=== PATIENT | female | born 1955 | race Caucasian/White ===

== ENCOUNTER 2020-04-30 11:51 | Outpatient (CLI) | payer MEDICAID, SELFPAY ==
--- NOTE | 2020-04-30 12:08 | MM_ITS ---
WS: [id number] DIAGNOSTIC BILATERAL DIGITAL MAMMOGRAM WITH CAD HISTORY: RIGHT breast paresthesias COMPARISON: 09/05/2018 TECHNIQUE: Bilateral craniocaudad, mediolateral oblique, and mediolateral views are submitted. Spot c ompression RIGHT CC. Computer aided detection utilized. Breast composition: There are scattered areas of fibroglandular density. Stable parenchymal pattern. Stable calcifications. No mass or distortion. MM/[place] [id number] IMPRESSION: BI-RADS: 2-Benign FOLLOW UP: 1 Year Follow-up
== END 2020-04-30 11:52 | disposition home or self-care (01) ==
LOC: RADSHAW 11:54
PROVIDERS: PCP Physician Assistant Medical; Visit Provider Physician Assistant Medical
DX: R20.2 Paresthesia of skin (principal)
CPT/HCPCS: 77066

== ENCOUNTER 2022-08-14 18:08 | Emergency (ER) | payer MEDICAID, SELFPAY ==
[2022-08-14] VITALS (8 sets, daily range): BP systolic 142–168; BP diastolic 60–84; PULSE 82–89; RESP 16–18; TEMP 36.8; O2SAT 91–98
--- NOTE | 2022-08-14 18:46 | CTR_ITS ---
PROCEDURE INFORMATION: Exam: CT Cervical Spine Without Contrast Exam date and time: 08/14/2022 8:08 PM Age: 67 years old Clinical indication: Other: AMS; Additional info: Trauma TECHNIQUE: Imaging protocol: Computed tomography of the cervical spine without contrast. Radiation optimization: All CT scans at this facility use at least one of these dose optimization techniques: automated exposure control; mA and/or kV adjustment per patient size (includes targeted exams where dose is matched to clinical indication); or iterative reconstruction. COMPARISON: CT head wo con* [id number] 08/14/2022 8:05 PM RADIATION DOSE METRICS: Total DLP (mGy-cm): 489.63 FINDINGS: Bones/joints: No acute fracture. Normal alignment. No significant disc protrusion. Apse-wr-qwpxxmds C5-7 degenerative change with loss of disc space and osteophyte formation. Lungs: Lung apices are normal. Vasculature: Advanced diffuse vascular calcification noted. Soft tissues: Unremarkable. CT/CT cervical spin wo con* [id number] IMPRESSION: 1. No acute findings. 2. Chronic findings above. Lower cervical DJD.
--- NOTE | 2022-08-14 18:46 | XRR_ITS ---
PROCEDURE INFORMATION: Exam: XR Chest Exam date and time: 08/14/2022 6:51 PM Age: 67 years old Clinical indication: Shortness of breath and other: Confusion; Additional info: SOB TECHNIQUE: Imaging protocol: Radiologic exam of the chest. Views: 1 view. COMPARISON: CT chest con [id number] 09/10/2016 8:36 AM FINDINGS: Tubes, catheters and devices: Multiple surgical clips project over the right and left chest. Lungs: Unremarkable. No consolidation. Pleural spaces: Unremarkable. No pleural effusion. No pneumothorax. Heart/Mediastinum: Unremarkable. No cardiomegaly. Bones/joints: Unremarkable. XR/XR chest 1V portable [id number] IMPRESSION: No acute findings.
--- NOTE | 2022-08-14 18:46 | CTR_ITS ---
PROCEDURE INFORMATION: Exam: CT Abdomen And Pelvis With Contrast Exam date and time: 08/14/2022 8:13 PM Age: 67 years old Clinical indication: Abdominal pain; Localized; Left lower quadrant (llq); Additional info: Llq abd pain TECHNIQUE: Imaging protocol: Computed tomography of the abdomen and pelvis with contrast. Radiation optimization: All CT scans at this facility use at least one of these dose optimization techniques: automated exposure control; mA and/or kV adjustment per patient size (includes targeted exams where dose is matched to clinical indication); or iterative reconstruction. Contrast material: OMNI 350; Contrast volume: 100 ml; Contrast route: INTRAVENOUS (IV); COMPARISON: [place] [id number] 05/23/2016 2:36 AM RADIATION DOSE METRICS: Total DLP (mGy-cm): 1752.98 FINDINGS: Liver: Normal. No mass. Gallbladder and bile ducts: Cholecystectomy. No ductal dilation. Pancreas: Normal. No ductal dilation. Spleen: Normal. No splenomegaly. Adrenal glands: Normal. No mass. Kidneys and ureters: Normal. No hydronephrosis. Stomach and bowel: Sigmoid diverticulosis without findings of acute diverticulitis. No obstruction. No mucosal thickening. Appendix: No evidence of appendicitis. Intraperitoneal space: No free air. No significant fluid collection. Vasculature: No abdominal aortic aneurysm. Lymph nodes: No enlarged lymph nodes. Urinary bladder: Unremarkable as visualized. Reproductive: Hysterectomy. Bones/joints: No acute fracture. Soft tissues: Unremarkable. CT/CT abdomen pelvis w con* [id number] IMPRESSION: No acute findings.
--- NOTE | 2022-08-14 18:46 | CTR_ITS ---
PROCEDURE INFORMATION: Exam: CT Head Without Contrast Exam date and time: 08/14/2022 8:05 PM Age: 67 years old Clinical indication: Altered mental status/memory loss; Additional info: AMS TECHNIQUE: Imaging protocol: Computed tomography of the head without contrast. Radiation optimization: All CT scans at this facility use at least one of these dose optimization techniques: automated exposure control; mA and/or kV adjustment per patient size (includes targeted exams where dose is matched to clinical indication); or iterative reconstruction. COMPARISON: No relevant prior studies available. RADIATION DOSE METRICS: Total DLP (mGy-cm): 1217.18 FINDINGS: Brain: No focal hemorrhage or midline shift is identified. The ventricles and parenchyma show vnvb-ek-tjkfypii atrophy and chronic bicerebral white matter ischemic change. A few scattered old lacunes are likely. Cerebral ventricles: No ventriculomegaly or evidence of hydrocephalus. Paranasal sinuses: No evidence of acute sinusitis. Mastoid air cells: Visualized mastoid air cells are well aerated. Bones/joints: No displaced skull fracture is noted. Soft tissues: Unremarkable. Vasculature: Advanced diffuse vascular calcification noted. CT/CT head wo con* [id number] IMPRESSION: 1. No acute intracranial abnormality. 2. Jqlt-fw-fvlhkpjh age-related changes. Other chronic findings above.
--- NOTE | 2022-08-14 18:56 | W.ED.AMS ---
HPI - Altered Mental Status General: Chief Complaint: Altered Mental Status Stated Complaint: CONFUSION Time Seen by Provider: 08/14/22 18:34 History of Present Illness: Patient is brought in by EMS after family requested she be sent here due to hallucinations and mental status change. Per the patient's ycqdbw-bi-fho the patient has been slowly declining for the past 6 months but she has seen a significant decline in the last week to week and a half. The patient states that there are people that enter her house and one of them has a big knife that he she was afraid he was going to kill her with. The police were at the patient's house the other day when this person person was in her home and they did not see anybody. Per the gshfyb-zf-qkc these hallucinations have been getting worse. Patient states that she has been falling frequently recently. Associated symptoms: Reports visual hallucinations Review of Systems Const: Denies: fever(s) or body aches Eyes: Denies: change in vision or blurry vision ENMT: Denies: throat pain or odynophagia Card: Denies: chest pain or palpitations Resp: Denies: dyspnea or productive cough GI: Denies: abdominal pain, nausea or vomiting : Denies: flank pain or dysuria Musc: Denies: neck pain or back pain Skin/Breast: Denies: rash or pruritus Neuro: Denies: headache(s) or numbness in extremities Psych: Reports: visual hallucinations; Denies: anxiety or change in appetite Endo: Denies: polyuria or excessive sweating PFSH ED PFSH: Medical History (Updated 08/14/22 @ 22:53 by Kyle Reyes MD) Dysphagia Family History Denies family history of Anesthesia complication Bleeding disorder Social History Smoking and tobacco status: current every day smoker cigarettes Alcohol intake: never Physical Exam Const: COMMON NORMALS: no acute distress, patient oriented x3, healthy appearing and alert HENMT: COMMON NORMALS: normocephalic and atraumatic HEAD & SCALP: normocephalic and atraumatic Eye: OTHER: Pupils are 8 mm bilaterally and minimally reactive Neck/C-Spine: COMMON NORMALS: full ROM and supple Resp: COMMON NORMALS: normal respiratory effort, No retractions and No use of accessory muscles Cardio: COMMON NORMALS: regular rate and regular rhythm RATE: regular rate RHYTHM: regular rhythm GI: COMMON NORMALS: Soft to palpation PALPATION: Yes Soft to palpation OTHER: Generalized tenderness to palpation worse in the left lower quadrant Back/Pelvis: COMMON NORMALS: thoracic and lumbar spine normal to inspection and no thoracic nor lumbar tenderness Extremity: COMMON NORMALS: normal to inspection and full ROM Neuro: COMMON NORMALS: patient oriented x3 SENSORIUM/ORIENTATION: Yes alert Psych: COMMON NORMALS: cooperative; negative for denies hallucinations Skin: COMMON NORMALS: no rashes or lesions noted and no wounds GENERAL SKIN EXAM: no rashes or lesions noted Course Vital Signs: Vital signs: Vital Signs Temperature 98.2 F 08/14/22 18:09 Pulse Rate 83 08/14/22 22:40 Respiratory Rate 16 08/14/22 22:30 Blood Pressure 148/63 08/14/22 22:30 Pulse Oximetry 93 08/14/22 22:40 Oxygen Delivery Me thod 08/14/22 22:40 MDM - Altered Mental Status Medical Decision Making Patient is brought in by EMS after family requested she be sent here due to hallucinations and mental status change. Per the patient's zjfiwt-le-vew the patient has been slowly declining for the past 6 months but she has seen a significant decline in the last week to week and a half. The patient states that there are people that enter her house and one of them has a big knife that he she was afraid he was going to kill her with. The police were at the patient's house the other day when this person person was in her home and they did not see anybody. Per the dtkvgm-fo-jpz these hallucinations have been getting worse. Patient states that she has been falling frequently recently. We will check labs, x-ray, CT, and reassess. On reassessment I talked to the patient's onwnyj-md-eif about the test results. I discussed the case with the hospitalist and with psychiatry. We will check CTA chest and if that is negative likely transfer to geriatric psychiatry. Will sign out to the oncoming physician awaiting test results. Lab Data 08/14/22 18:30 08/14/22 18:30 Radiology Impressions Abdomen/Pelvis CT 08/14/22 18:46 IMPRESSION: No acute findings. Cervical Spine CT 08/14/22 18:46 IMPRESSION: 1. No acute findings. 2. Chronic findings above. Lower cervical DJD. Chest X-Ray 08/14/22 18:46 IMPRESSION: No acute findings. Head CT 08/14/22 18:46 IMPRESSION: 1. No acute intracranial abnormality. 2. Daiq-xz-qucqdvmj age-related changes. Other chronic findings above. Laboratory Results WBC 15.1 10^3/uL (4.0-10.0) H 08/14/22 18:30 RBC 4.90 10^6/uL (4.1-5.3) 08/14/22 18:30 Hgb 12.8 g/dL (11.5-15.3) 08/14/22 18:30 Hct 40.5 % (37.0-47.0) 08/14/22 18:30 MCV 82.7 fl (81-99) 08/14/22 18:30 MCH 26.1 pg (28.0-34.0) L 08/14/22 18: MCHC 31.6 g/dL (30.0-36.0) 08/14/22 18:30 RDW 16.4 % (12.1-15.1) H 08/14/22 18:30 Plt Count 411 10^3/cmm (130-400) H 08/14/22 18:30 MPV 11.4 fL (7.4-10.4) H 08/14/22 18:30 Neut % (Auto) 75.4 % 08/14/22 18:30 Lymph % (Auto) 18.3 % 08/14/22 18:30 [place] % (Auto) 4.5 % 08/14/22 18:30 Eos % (Auto) 0.7 % 08/14/22 18:30 Baso % (Auto) 0.5 % 08/14/22 18:30 Neut # (Auto) 11.34 10^3/uL (1.8-7.7) H 08/14/22 18:30 Lymph # (Auto) 2.8 10^3/uL (0.8-4.8) 08/14/22 18:30 [place] # (Auto) 0.7 10^3/uL (0.2-0.9) 08/14/22 18:30 Eos # (Auto) 0.1 10^3/uL (0.0-0.8) 08/14/22 18:30 Baso # (Auto) 0.1 10^3/uL (0.0-0.1) 08/14/22 18:30 Nucleated RBC % (auto) 0 % 08/14/22 18:30 Nucleated RBCs # 0.0 /100WBC 08/14/22 18: ESR 26 mm/hr (0-15) H 08/14/22 21:46 Sodium 135 mmol/L (136-145) L 08/14/22 18:30 Potassium 4.1 mmol/L (3.5-5.1) 08/14/22 18:30 Chloride 97 mmol/L (98-107) L 08/14/22 18:30 Carbon Dioxide 28 mmol/L (22-29) 08/14/22 18:30 Anion Gap 14.1 (5-19) 08/14/22 18:30 BUN 13 mg/dL (8-23) 08/14/22 18:30 Creatinine 0.7 mg/dL (0.5-0.9) 08/14/22 18:30 GFR Calculation 83.2 mL/min (90-130) L 08/14/22 18:30 Glucose 92 mg/dL (65-115) 08/14/22 18:30 Calculated Osmolality 280 mOsm/kg (285-295) L 08/14/22 18:30 Calcium 9.0 mg/dL (8.5-10.5) 08/14/22 18:30 Magnesium 1.9 mg/dL (1.7-2.3) 08/14/22 18:30 Total Bilirubin 0.4 mg/dL (0.15-1.2) 08/14/22 18:30 AST 37 U/L (0-32) H 08/14/22 18:30 ALT 14 U/L (0-33) 08/14/22 18:30 Alkaline Phosphatase 143 U/L (35-105) H 08/14/22 18:30 Ammonia 14 umol/L (11-51) 08/14/22 19:10 Total Protein 7.0 g/dL (6.6-8.7) 08/14/22 18:30 Albumin 3.4 g/dL (3.5-5.2) L 08/14/22 18:30 Globulin 3.6 g/dL (1.3-4.6) 08/14/22 18:30 Procalcitonin 0.06 ng/mL (0-0.5) 08/14/22 21:46 TSH 1.19 uIU/mL (0.27-4.20) 08/14/22 21:46 Urine Color Yellow (Yellow) 08/14/22 20:43 Urine Appearance Clear (CLEAR) 08/14/22 20:43 Urine pH 7 (5-7) 08/14/22 20:43 Ur Specific [place] 1.005 (1.005-1.030) 08/14/22 20:43 Urine Protein Neg (Negative) 08/14/22 20:43 Urine Glucose (UA) Norm (Normal) 08/14/22 20:43 Urine Ketones 1+ (Negative) H 08/14/22 20:43 Urine Blood Neg (Negative) 08/14/22 20:43 Urine Nitrate Negative (Negative) 08/14/22 20:43 Urine Bilirubin Neg (Negative) 08/14/22 20:43 Urine Urobilinogen Norm mg/dL (Negative) 08/14/22 20:43 Ur Leukocyte Esterase Negative (Negative) 08/14/22 20:43 Salicylates 0.6 mg/dL (3-10) L 08/14/22 18:30 Urine Opiates Screen Negative ng/mL (Negative) 08/14/22 20:43 Acetaminophen < 5.0 ug/mL (10-30) L 08/14/22 18:30 Ur Barbiturates Screen Negative ng/mL (Negative) 08/14/22 20:43 Ur Phencyclidine Scrn Negative ng/mL (Negative) 08/14/22 20:43 Ur Amphetamines Screen Negative ng/mL (Negative) 08/14/22 20:43 U Benzodiazepines Scrn Positive ng/mL (Negative) H 08/14/22 20:43 Urine Cocaine Screen Negative ng/mL (Negative) 08/14/22 20:43 U Marijuana (THC) Screen Negative ng/mL (Negative) 08/14/22 20:43 Ethyl Alcohol < 10 mg/dL (0-10) 08/14/22 18:30 Discharge Plan Discharge Clinical Impression: Hallucinations Condition: Stable Prescriptions: No Action venlafaxine 37.5 mg tablet 37.5 mg PO DAILY butenafine [Lotrimin Ultra] 1 % cream 1 applic TOPICAL DAILY Rx Instructions: apply to cleansed affected area and immediate surrounding areas Combivent Respimat 20-100 mcg/actuation mist 1 puff INHALATION Q6H alprazolam 1 mg tablet 1 mg PO DAILY amlodipine 10 mg tablet 10 mg PO DAILY levothyroxine 137 mcg capsule 137 mcg PO DAILY fluticasone propion-salmeterol [Advair Diskus] 500-50 mcg/dose blister with device 1 inh INHALATION BID omeprazole 20 mg capsule,delayed release(DR/EC) 20 mg PO DAILY mupirocin calcium 2 % cream 1 applic TOPICAL BID quetiapine [Seroquel] 100 mg tablet 100 mg PO DAILY sulfacetamide sodium 10 % ointment 1 applic ophthalmic (eye) Q4H lisinopril 20 mg tablet 20 mg PO DAILY sucralfate 1 gram tablet 1 gm PO BID albuterol sulfate 2.5 mg /3 mL (0.083 %) solution for nebulization 2.5 mg INHALATION QID Referrals: Steven Castrejon [Primary Care Provider] - Coding Level of Care Code ED Vamp Cut Out Worker for Chg Fwd Exam Comprehensive
[2022-08-14] MEDS: sodium chloride 0.9% 500 ML IV (19:08)
[2022-08-14 19:12] LABS: Basophils # 0.1 10^3/uL (0.0-0.1); Basophils % 0.5 %; Eosinophils # 0.1 10^3/uL (0.0-0.8); Eosinophils % 0.7 %; Hematocrit 40.5 % (37.0-47.0); Hemoglobin 12.8 g/dL (11.5-15.3); Lymphocytes # 2.8 10^3/uL (0.8-4.8); Lymphocytes % 18.3 %; Mean Corpuscular HGB Conc 31.6 g/dL (30.0-36.0); Mean Corpuscular Hemoglobin 26.1 pg (28.0-34.0); Mean Corpuscular Volume 82.7 fl (81-99); Mean Platelet Volume 11.4 fL (7.4-10.4); Monocytes # 0.7 10^3/uL (0.2-0.9); Monocytes % 4.5 %; Neutrophils # 11.34 10^3/uL (1.8-7.7); Neutrophils % 75.4 %; Nucleated Red Blood Cells % 0 %; Platelet Count 411 10^3/cmm (130-400); Red Cell Distribution Width 16.4 % (12.1-15.1); White Blood Count 15.1 10^3/uL (4.0-10.0)
[2022-08-14 19:49] LABS: Alanine Aminotransferase 14 U/L (0-33); Albumin Level 3.4 g/dL (3.5-5.2); Alkaline Phosphatase 143 U/L (35-105); Anion Gap 14.1 (5-19); Aspartate Amino Transferase 37 U/L (0-32); Blood Urea Nitrogen 13 mg/dL (8-23); Carbon Dioxide 28 mmol/L (22-29); Chloride 97 mmol/L (98-107); Globulin 3.6 g/dL (1.3-4.6); Glomerular Filtration Rate 83.2 mL/min (90-130); Glucose 92 mg/dL (65-115); Magnesium 1.9 mg/dL (1.7-2.3); Osmolality Calculated 280 mOsm/kg (285-295); Potassium 4.1 mmol/L (3.5-5.1); Salicylate 0.6 mg/dL (3-10); Sodium 135 mmol/L (136-145); Total Bilirubin 0.4 mg/dL (0.15-1.2)
[2022-08-14 19:51] LABS: Ammonia 14 umol/L (11-51)
[2022-08-14 19:53] LABS: Acetaminophen < 5.0 ug/mL (10-30); Alcohol Level < 10 mg/dL (0-10)
[2022-08-14] MEDS: iohexol 350 mg/mL 500 mL Btl (per mL) IV (20:42)
[2022-08-14 20:53] LABS: Add Urine Microscopic? NO; Charge for UA Resulting for Rev
[2022-08-14 20:56] LABS: Bilirubin Urine Neg (Negative); Blood Urine Neg (Negative); Glucose Urine UA Norm (Normal); Ketones Urine 1+ (Negative); Leukocyte Esterase Urine Negative (Negative); Nitrate Urine Negative (Negative); Protein Urine Neg (Negative); Specific Gravity, Urine 1.005 (1.005-1.030); Urine Appearance Clear (CLEAR); Urine Color Yellow (Yellow); Urobilinogen Urine Norm (Negative); pH Urine 7 (5-7)
[2022-08-14 21:04] LABS: Amphetamines Screen Urine Negative (Negative); Barbiturates Screen Urine Negative (Negative); Benzodiazepines Screen Urine Positive (Negative); Cocaine Screen Urine Negative (Negative); Opiate Screen Urine Negative (Negative); PCP Screen Urine Negative (Negative); THC Screen Urine Negative (Negative)
--- NOTE | 2022-08-14 22:07 | ECG_ITS ---
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 [id number]
--- NOTE | 2022-08-14 22:07 | CTR_ITS ---
PROCEDURE INFORMATION: Exam: CTA Chest With Contrast Exam date and time: 08/14/2022 11:20 PM Age: 67 years old Clinical indication: Shortness of breath; Patient HX: Cough, shob; Additional info: Concern for pe TECHNIQUE: Imaging protocol: Computed tomographic angiography of the chest with contrast. 3D rendering (Not supervised by radiologist): MIP and/or 3D reconstructed images were created by the technologist. Radiation optimization: All CT scans at this facility use at least one of these dose optimization techniques: automated exposure control; mA and/or kV adjustment per patient size (includes targeted exams where dose is matched to clinical indication); or iterative reconstruction. Contrast material: OMNI 350; Contrast volume: 80 ml; Contrast route: INTRAVENOUS (IV); COMPARISON: CT chest wo con [id number] 09/10/2016 8:36 AM RADIATION DOSE METRICS: Total DLP (mGy-cm): 428.46 FINDINGS: Pulmonary arteries: No main, lobar, or segmental PE identified. Aorta: Unremarkable. No aortic aneurysm. No aortic dissection. Other arteries: Severe atherosclerosis. Lungs: Minor areas of lung base atelectasis or scarring. Bilateral upper lobe clips are seen on series 4, image 17. Small area of RUL chronic appearing consolidation or mass measuring 2.9 cm. A similar left-sided 1 is also present measuring up to 3.0 cm. See series 4, image 17. Pleural spaces: No pneumothorax. No pleural effusion noted. Heart: The heart is not enlarged. No pericardial effusion is noted. Lymph nodes: Mild mediastinal and bilateral hilar lymphadenopathy. Nodes measure up to 1.8 cm. Diaphragm: Small hiatal hernia. Bones/joints: Few old right upper rib deformities. Soft tissues: Unremarkable. CT/CT angio chest [id number] IMPRESSION: 1. No PE identified. 2. COPD with bilateral upper lung clips and nodular consolidations as described. These may be due to scar, neoplasm, etc. Mild mediastinal and bilateral hilar lymphadenopathy. Recommend three-month follow-up. 3. Other findings above. 4. See the same-day abdomen/pelvis CT report for upper abdominal findings.
[2022-08-14 22:13] LABS: Erythrocyte Sedimentation Rate 26 mm/hr (0-15)
[2022-08-14] MEDS: albuterol 2.5 mg/3 mL Neb INHALATION (22:39)
[2022-08-14 22:41] LABS: Procalcitonin 0.06 ng/mL (0-0.5); Thyroid Stimulating Hormone 1.19 uIU/mL (0.27-4.20)
--- NOTE | 2022-08-14 22:50 | P.HP_ITS ---
Providers/Chief Complaint Primary Care Provider: Steven Castrejon Chief Complaint: CONFUSION History of Present Illness Deena Rivero is a 67 year old female with a strong family history of Alzheimer's dementia, both mother and father had it, she has had some undiagnosed dementia for the last few years, history of depression, history of a nxiety, history of lung cancer, status post radiation therapy, smoker, COPD, hypothyroidism, hypertension who presents to [facility] due to seeing things are not there. Patient's [id number]-tn-prl is at bedside, she tells me that patient lives at home by herself, she can ambulate on her own with a walker, she needs assisted in cooking cleaning and paying the bills. At baseline she has not alert place or time she does not know the president. She has been like this for a few years, the family thinks it potentially dementia, as both her mom and father had severe Alzheimer's dementia, quite young and from dementia. She in February had a significant life altering event her mom who was her best friend, and since then she has been quite down and depressed. She has voiced suicidal ideation to family members in the past. Family says that she has gone through a downward spiral since her mom , but recently in the last few weeks, she has been voicing that she sees things are not there, such as seeing her mother, no command hallucinations, does not hear voices. I asked patient if she has any headache or blurry vision she denies this. No neck pain or neck stiffness. No chest pain, no palpitations. She does have some wheezing on exam but she tells that she always has this because of her smoking. She has a cough but she tells her that she always has coughing because of her smoking. No shortness of breath. No abdominal pain. No diarrhea. No new skin lesions. No dysuria, no hematuria. She tells me that since her mom she has been feeling more down depressed and sad, her and her mom are very close, and her mom's has significantly impacted her. She does report that she is seeing things that are not there, such as seeing her mom in the last few days, denies any suicidal ideation, denies any homicidal ideation. Currently she is alert to person, not to place, not to time does not know the president she does follow commands. Family members tell me that in terms of mentation she is about at baseline. Hospitalist team was consulted as her white count is 15.1, no significant source of infection UA is unremarkable chest x-ray no focal pneumonia. Since family tells me that they do not know a lot about her medical history in terms of her lung cancer, she follows up with a oncologist in [place] however given her presumed dementia, and nobody is ever to accompanied her to her doctor's visit they are not exactly sure what the status is. Patient herself has bizarre answers when family numbers ask him what is going on she tells me that the doctor tells her that she is not cannot make it. She does report some substernal chest pain, but that is all she tells me she is really really cannot elaborate Review of Systems Const: Denies: fever(s), chills, fatigue or malaise Eyes: Denies: change in vision or blurry vision ENMT: Denies: nasal congestion Card: Reports: chest pain Resp: Denies: dyspnea or productive cough GI: Denies: abdominal pain, nausea, vomiting, hematemesis, diarrhea, constipation, hematochezia or melena : Denies: flank pain, dysuria or urinary frequency Musc: Denies: neck pain or back pain Skin/Breast: Denies: rash Neuro: Denies: headache(s), dizziness or vertigo Endo: Denies: polyuria or polydipsia Medications/Allergies Home Medications Medication Instructions Recorded Confirmed Last Taken Type albuterol sulfate 2.5 mg/3 mL 2.5 mg inhalation QID 04/29/20 04/29/20 Unknown History (0.083 %) solution for nebulization alprazolam 1 mg tablet 1 mg PO DAILY 04/29/20 04/29/20 Unknown History amlodipine 10 mg tablet 10 mg PO DAILY 04/29/20 04/29/20 Unknown History butenafine 1 % topical cream 1 applic topical DAILY 04/29/20 04/29/20 Unknown History (Lotrimin Ultra) fluticasone 500 mcg-salmeterol 50 1 inh inhalation BID 04/29/20 04/29/20 Unknown History mcg/dose blistr powdr for inhalation (Advair Diskus) ipratropium 20 mcg-albuterol 100 1 puff inhalation Q6H 04/29/20 04/29/20 Unknown History mcg/actuation mist for inhalation (Combivent Respimat) levothyroxine 137 mcg capsule 137 mcg PO DAILY 04/29/20 04/29/20 Unknown History lisinopril 20 mg tablet 20 mg PO DAILY 04/29/20 04/29/20 Unknown History mupirocin calcium 2 % topical cream 1 applic topical BID 04/29/20 04/29/20 Unknown History omeprazole 20 mg capsule,delayed 20 mg PO DAILY 04/29/20 04/29/20 Unknown Histor y release quetiapine 100 mg tablet (Seroquel) 100 mg PO DAILY 04/29/20 04/29/20 Unknown History sucralfate 1 gram tablet 1 gm PO BID 04/29/20 04/29/20 Unknown History sulfacetamide sodium 10 % eye 1 applic ophthalmic (eye) Q4H 04/29/20 04/29/20 Unknown History ointment venlafaxine 37.5 mg tablet 37.5 mg PO DAILY 04/29/20 04/29/20 Unknown History Allergies Allergy/AdvReac Type Severity Reaction Status Date / Time ampicillin Allergy Severe ALGY-Rash Verified 04/29/20 15:23 buspirone [From BuSpar] Allergy Severe ADR/ALGY-Pa Verified 04/29/20 15:23 lpitations Penicillins Allergy Severe ALGY-Rash Verified 04/29/20 15:23 povidone-iodine Allergy Severe ALGY-Rash Verified 04/29/20 15:23 [From Betadine] soap [From Betadine] Allergy Severe ALGY-Rash Verified 04/29/20 15:23 PFSH Acute PFSH: Medical History (Updated 08/14/22 @ 22:59 by Alexey Cage MD) Anxiety and depression Asthma CAD (coronary artery disease) CHF (congestive heart failure) Chronic diarrhea COPD (chronic obstructive pulmonary disease) Dysphagia Fibromyalgia GERD (gastroesophageal reflux disease) History of MRSA infection Hypertension Hypothyroidism Osteoarthritis Stricture esophagus Surgical History (Updated 08/14/22 @ 22:59 by Alexey Cage MD) History of colonoscopy History of hysterectomy History of knee surgery History of laparoscopic appendectomy History of laparoscopic cholecystectomy Family History (Updated 08/14/22 @ 22:54 by Alexey Cage MD) Father Dementia Mother Dementia Denies family history of Anesthesia complication Bleeding disorder Social History Smoking and tobacco status: current every day smoker cigarettes Alcohol intake: never Vitals/I&O/Wt Last Vital Signs Temp 98.2 F 08/14/22 18:09 Pulse 83 08/14/22 22:40 Resp 16 08/14/22 22:30 BP 148/63 08/14/22 22:30 Pulse Ox 93 08/14/22 22:40 O2 Del Method 08/14/22 22:40 08/14/22 08/14/22 08/14/22 06:59 14:59 22:59 Intake Total 500 / 500 Balance 500 / 500 Weight last 48 hrs Weight 90.718 kg Physical Exam Const: COMMON NORMALS: no acute distress ORIENTATION/CONSCIOUSNESS: Yes awake, Yes oriented to person and Yes confused; not oriented to place and not oriented to time HENMT: COMMON NORMALS: normocephalic HEAD & SCALP: normocephalic Eye: COMMON NORMALS: Equal, round and reactive pupils present and EOMs intact bilaterally Neck/C-Spine: COMMON NORMALS: no JVD Lymph: LYMPHATIC: no lymphadenopathy noted Resp: COMMON NORMALS: normal respiratory effort, No retractions, No use of accessory muscles and clear to auscultation bilaterally AUSCULTATION: wheezes Cardio: COMMON NORMALS: no JVD, regular rate, regular rhythm, S1 normal heart sound present and S2 normal heart sound present RATE: regular rate RHYTHM: regular rhythm HEART SOUNDS: S1 normal heart sound present and S2 normal heart sound present GI: COMMON NORMALS: Normal to inspection, nondistended, normoactive bowel sounds present, Soft to palpation, non-tender, no masses and no bruits PALPATION: Yes Soft to palpation and Yes No hepatosplenomegaly present Extremity: COMMON NORMALS: no calf tenderness and no pedal edema Neuro: COMMON NORMALS: CN's II-XII intact bilaterally, moves all extremities and no focal motor deficits Psych: COMMON NORMALS: mental status grossly normal Data 08/14/22 18:30 08/14/22 18:30 Micro: Microbiology 08/14/22 19:59 Blood Culture - Preliminary Blood SPECIMEN COLLECTED 08/14/22 19:54 Blood Culture - Preliminary Blood SPECIMEN COLLECTED A&P Assessment and plan (1) Hallucinations: Plan Hallucinations -Likely exacerbation of depression and anxiety -Also some component of paranoid schizophrenia -She has chronic memory loss, likely undiagnosed dementia is alert to person, not to place, not to time and she has been like this for many years, she has a strong family history of Alzheimer's dementia including both mom and dad dad from Alzheimer's dementia -Possibly worsening of her dementia in addition -Has had suicidal ideation in the past, none currently -Her white count is 15 -No fevers, chest x-ray no focal pneumonia, UA no UTI, Pro-Cade within normal limits -Given her history of lung cancer, I will do a CT angiogram of the chest to evaluate for pulm embolism given her wheezing and her nonspecific complaints of some chest pain -We will see what CRP shows -Flu and COVID testing -Troponin series -TSH within normal limits -No significant evidence of meningitis, no neck pain, neck stiffness, no headache, blurry vision, no fevers -We will give her Solu-Medrol, and nebulizer treatment here in the emergency room given her wheezing, she is on room air, but she does recommend shortness of breath -ER physician has spoken to psychiatry recommended transfer to geriatric psych -If medical work-up is negative she can be transferred to geriatric psych facility Attestations Medical Necessity Statement*: Patient will be transferred to geriatric psych facility Coding Level of Care Code Acute 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
[2022-08-14 23:05] LABS: NT Pro B Type Natriuretic Pept 608 pg/mL (0-125); Troponin(5th) Baseline 9 ng/L (0-10)
[2022-08-15] VITALS (9 sets, daily range): BP systolic 120–183; BP diastolic 41–66; PULSE 80–95; RESP 16; O2SAT 92–96
--- NOTE | 2022-08-15 00:21 | ECG_ITS ---
[facility] Test Date: 2022-08-15 Pat Name: Deena Rivero Department: Room: Gender: Female Claim Representative: : 1955 Requested By: Kyle Reyes Order Number: [id number] Tato MD: Sunday Saldana M.D. Measurements Intervals [place] Rate: 83 P: 46 [place]: 141 QRS: 46 QRSD: 101 T: 52 QT: 443 QTc: 521 Interpretive Statements SINUS RHYTHM NONSPECIFIC T-WAVE ABNORMALITY PROLONGED QT INTERVAL Compared to ECG 08/14/2022 22:24:29 Prolonged QT interval now present T-wave abnormality still present Electronically Signed On 08-15-2022 15:24:04 PLANT CONTROL AIDE by Sunday Saldana M.D. [id number]
[2022-08-15 00:45] LABS: Troponin 5 2HR 8.97 ng/L (0-10)
[2022-08-15 01:06] LABS: Adenovirus Not Detected (NOT DETECT); Chlamydia Pneumoniae Not Detected (NOT DETECT); Coronavirus 229E,HKU1,NL63,OC4 Not Detected (NOT DETECT); Human Metapneumovirus Not Detected (NOT DETECT); Human Rhinovirus/Enterovirus Not Detected (NOT DETECT); Influenza A Not Detected (NOT DETECT); Influenza A H1 Not Detected (NOT DETECT); Influenza A H1-2009 Not Detected (NOT DETECT); Influenza A H3 Not Detected (NOT DETECT); Influenza B Not Detected (NOT DETECT); Mycoplasma Pneumoniae Not Detected (NOT DETECT); Parainfluenza Virus Type 1 Not Detected (NOT DETECT); Parainfluenza Virus Type 2 Not Detected (NOT DETECT); Parainfluenza Virus Type 3 Not Detected (NOT DETECT); Parainfluenza Virus Type 4 Not Detected (NOT DETECT); Respiratory Syncytial Virus A Not Detected (NOT DETECT); Respiratory Syncytial Virus B Not Detected (NOT DETECT); SARS-COV-2 Not Detected (NOT DETECT)
[2022-08-15] MEDS: hyDRALAzine 20 mg/mL INJ 1 mL 10 MG IVP (01:11)
[2022-08-15 01:16] LABS: Troponin 5 2HR Delta -0.03 ABS# (0-10)
[2022-08-15] MEDS: ipratropium-albuterol 3 mL Neb INHALATION (01:45)
[2022-08-15] MEDS: iohexol 350 mg/mL 500 mL Btl (per mL) IV (01:46)
[2022-08-15 02:10] LABS: Results from Genmark
[2022-08-16 18:09] LABS: ABG PCO2 39.7 mmHg (35-45); ABG PH Result 7.43 (7.35-7.45); Arterial Blood Gas Hematocrit 37.8 % (37-47); Base Excess ABG 2.1 mmol/L (-2.0-2.0); Blood Gas Allen Test Pos; Blood Gas Sample Site Radial, right; Blood Gas Sample Type Arterial; HCO3 ABG 26.5 mmol/L (22-26); Oxygen Device ROOM AIR; PO2 ABG 71.4 mmHg (80.0-100.0)
== END 2022-08-15 04:31 ==
PROVIDERS: Emergency Medicine; Family Medicine; Emergency Provider Emergency Medicine; PCP Physician Assistant Medical
DX: R44.3 Hallucinations, unspecified (principal); F17.210 Nicotine dependence, cigarettes, uncomplicated; Z20.822 Contact with and (suspected) exposure to COVID-19
CPT/HCPCS: 36415; 36600; 70450; 71045; 71275; 72125; 74177; 80053; 80306; 80307; 81003; 82140; 82803; 83735; 83880; 84145; 84443; 84484; 85025; 85651; 86140; 87040; 87631; 87635; 93005; 94640; 96361; 96374; 96375; 99285; J0360; J2930; J7040; J7613; Q9967

== ENCOUNTER 2023-02-17 12:54 | Outpatient (CLI) | payer MEDICAID, SELFPAY ==
[2023-02-17 13:48] LABS: Basophils # 0.1 10^3/uL (0.0-0.1); Basophils % 0.8 %; Eosinophils # 0.6 10^3/uL (0.0-0.8); Eosinophils % 5.4 %; Hematocrit 40.3 % (37.0-47.0); Hemoglobin 12.6 g/dL (11.5-15.3); Lymphocytes # 3.8 10^3/uL (0.8-4.8); Lymphocytes % 34.5 %; Mean Corpuscular HGB Conc 31.3 g/dL (30.0-36.0); Mean Corpuscular Volume 83.3 fl (81-99); Mean Platelet Volume 11.3 fL (7.4-10.4); Monocytes # 0.7 10^3/uL (0.2-0.9); Monocytes % 6.6 %; Neutrophils # 5.69 10^3/uL (1.8-7.7); Neutrophils % 51.8 %; Nucleated Red Blood Cells % 0 %; Platelet Count 385 10^3/cmm (130-400); Red Blood Count 4.84 10^6/uL (4.1-5.3); Red Cell Distribution Width 17.8 % (12.1-15.1)
[2023-02-17 14:11] LABS: Alanine Aminotransferase 17 U/L (0-33); Albumin Level 3.9 g/dL (3.5-5.2); Alkaline Phosphatase 121 U/L (35-105); Anion Gap 15.8 (5-19); Aspartate Amino Transferase 17 U/L (0-32); Blood Urea Nitrogen 14 mg/dL (8-23); Calcium 8.7 mg/dL (8.5-10.5); Carbon Dioxide 26 mmol/L (22-29); Chloride 100 mmol/L (98-107); Globulin 2.8 g/dL (1.3-4.6); Glomerular Filtration Rate 62.3 mL/min (90-130); Glucose 112 mg/dL (65-115); Osmolality Calculated 287 mOsm/kg (285-295); Potassium 3.8 mmol/L (3.5-5.1); Sodium 138 mmol/L (136-145); Total Bilirubin 0.2 mg/dL (0.15-1.2); Total Protein 6.7 g/dL (6.6-8.7)
== END 2023-02-17 12:55 | disposition home or self-care (01) ==
PROVIDERS: PCP Family Medicine; Visit Provider Internal Medicine Hematology & Oncology
DX: C34.91 Malignant neoplasm of unspecified part of right bronchus or lung (principal)
CPT/HCPCS: 36415; 80053; 85025